=== PATIENT | male | born 1940 | race Caucasian/White ===

== ENCOUNTER 2023-12-21 14:18 | Emergency (ER) | payer OTHER, SELFPAY ==
[2023-12-21 14:19] VITALS: BP 133/61
--- NOTE | 2023-12-21 15:23 | ED.GENMED ---
History of Present Illness
General
Chief Complaint: Fall
Source: patient
Exam Limitations: none
Time Seen by Provider: 12/21/23 14:48
Nursing documentation reviewed up to this point in time: agreed with
History of Present Illness
History of Present Illness:
83 y/o male with PMH of CAD, hyperlipidemia presents to the emergency department today with concerns of left elbow pain following a fall. Patient reports that he has a small dog and was trying to avoid stepping on the dog when he misstepped and
fell down 4-5 stairs, falling on his left arm. Patient reports hitting his head, synopsizing. Patient reports neck injury. Patient denies any headache, neck pain, dizziness. Patient denies any neck pain. Patient states that he was able to get up on
his own after the fall and walk okay. He denies any other injuries. Patient denies loss of sensation, numbness or tingling in his left upper extremity. Patient does take plavix but denies taking any anticoagulant medication.
Past History
Past History
ED Past Medical History: Hypercholesterolemia
ED Past Surgical History: Other
Social History
Tobacco: Non-smoker
Alcohol: Occasional
Drug: None
Personal:
Living: with family
Review of Systems
Review of Systems
All Other Systems: ROS reviewed and negative except as documented in HPI and ROS
Phy Exam
Physical Exam
Physical Exam:
General: Patient is well appearing and in no acute distress; non-toxic
Skin: Warm and dry, no rashes no open lesions. Brisk capillary refill.
Head: Normocephalic, atraumatic
Eyes: Sclera non-icteric. EOMs intact.
Neck: Patient seen spontaneously moving cervical spine. No tenderness to palpation of the cervical spine.
Cardiac: Regular rate and rhythm, no murmur, no tenderness to palpation of the external chest wall
Pulm: Normal respiratory effort, no wheezes, rales, rhonchi
Abdomen: No abdominal tenderness to palpation.
Musculoskeletal: Hematoma noted to the left elbow overlying the olecranon. No palpable crepitus. No tenderness to palpation of the left clavicle, scapula, humerus, bones of wrist. No pain with passive range of motion of the lower extremities.
Neuro: CN II-XII intact, no focal neurologic deficits.
Psychiatric: Appropriate mood and affect.
Course
Orders/Labs/Results
Orders:
Orders
12/21/23 14:22
Elbow, 3 view, Left [CR Elbow - Left Min 3 Views ] Urgent
Comment:
Reason For Exam: swelling, pain
Vital Signs
Initial and Last Documented VS:
Initial Vital Signs
Temp Pulse Resp BP Pulse Ox
98.4 F 60 18 133/61 98
12/21/23 14:19 12/21/23 14:19 12/21/23 14:19 12/21/23 14:19 12/21/23 14:19
Last Documented Vital Signs
Temp Pulse Resp BP Pulse Ox
98.4 F 60 18 133/61 98
12/21/23 14:19 12/21/23 14:19 12/21/23 14:19 12/21/23 14:19 12/21/23 14:19
MDM/Problems Addressed
Differential Diagnosis Includes:
olecranon fracture, radius fracture, ulnar fracture, contusion, hematoma
MDM/Problems Addressed:
83 y/o male pmh of CAD on plavix presents to the emergency department today with left elbow pain following fall. He adamantly denies hitting his head. He denies neck pain. He denies any other injuries. He is able to ambulate without difficulty. On
exam he has a large hematoma overlying the left olecranon. His x-ray shows welling but is negative for fracture. Radiology report reads that there is air within the tissue, however patient has no open lesions and has hematoma on exam, no concern for
infectious etiology. Compression was applied with jefry bandages. Patient was encouraged to elevate the extremity and return should hematoma rapidly expand.
Chronic conditions affecting care:
n/a
Acute Exacerbation and/or Progression of Chronic Illness:
n/a
*Radiology
Radiology exam reviewed: preliminary read by ED provider (no acute fracture or dislocation)
*Pulse Oximetry
Patient hypoxic: no
*Critical Care Note
Total Time (30-74mins, 75-104mins- exclusive of procedures): Not Applicable
Data Reviewed
Review of Other/Old Records Reveals: Records (reviewed ER physician documentation from 03/12/10)
Source: patient and records
Prescriptions/Medications Considered But Not Given:
Considered medication for pain but patient declining medication at this time
Patient Management
Escalation/DeEscalation of care consider admission/obs:
Admit not indicated, patient stable for discharge, case reviewed with my attending
ED Attending Note
-
Portions of this chart may have been created with voice recognition software.� Occasional wrong word or��sound alike� substitutions may have occurred due to the inherent limitations of voice recognition software.
Discharge Plan
Departure
Patient Disposition: Home (Routine Discharge)
Date of Disposition: 12/21/23
Time of Disposition: 15:25
Patient with high blood pressure during this ER visit?: Yes
Condition: Good
Discharge Problem:
Traumatic hematoma of left upper arm
Instructions: BLOOD PRESSURE, Hematoma
Prescriptions:
No Action
TERAZOSIN HCL
5 mg PO DAILY
SIMVASTATIN
20 mg PO DAILY
Referrals:
Sherrill Santiago MD [Family Provider] -
Activity Restrictions/Additional Instructions:
Please keep the arm elevated at home and apply compression with Jefry wrap. You can also apply apply ice to the area.
Please follow up with your primary care provider in one week to ensure your hematoma is resolving.
Please return emergency department should you experience increasing pain in your arm, loss of sensation, pallor, numbness or tingling in your fingers, any other signs or symptoms concerning to you.
Interventions
Interventions:
*Risk Screen - Suicide Last Done: 12/21/23 14:19
*General Assessment Last Done: 12/21/23 14:19
*Neglect/Abuse Screening Last Done: 12/21/23 14:19
*Nursing Disposition Last Done: 12/21/23 16:03
ED-Musculoskeletal Assessment Last Done: 12/21/23 14:55
ED- Neurological Assessment Last Done: 12/21/23 14:55
Discharge Date and Time
Discharge Date/Time: 12/21/23 16:04
Print Language: KOREAN
== END 2023-12-21 16:04 | disposition home or self-care (01) ==
LOC: EMR 14:18
PROVIDERS: EMERGENCY PHYSICIAN Emergency Medicine; FAMILY PHYSICIAN Family Medicine
DX: S40.022A Contusion of left upper arm, initial encounter (principal); W19.XXXA Unspecified fall, initial encounter; I25.10 Atherosclerotic heart disease of native coronary artery without angina pectoris; E78.00 Pure hypercholesterolemia, unspecified; Z79.02 Long term (current) use of antithrombotics/antiplatelets
CPT/HCPCS: 99283; 73080

== ENCOUNTER → 2023-12-26 14:08 | Outpatient (REF) | payer OTHER, SELFPAY | LOC: HWRAD 14:08 | PROVIDERS: ATTENDING PHYSICIAN Orthopaedic Surgery Hand Surgery; FAMILY PHYSICIAN Family Medicine | DX: M25.512 Pain in left shoulder (principal) | CPT/HCPCS: 73200 ==

== ENCOUNTER → 2023-12-31 09:38 | Outpatient (REF) | payer OTHER, SELFPAY | LOC: RAD 09:38 | PROVIDERS: ATTENDING PHYSICIAN Orthopaedic Surgery Hand Surgery; FAMILY PHYSICIAN Family Medicine | DX: M25.522 Pain in left elbow (principal) | CPT/HCPCS: 76882 ==

== ENCOUNTER → 2024-01-03 09:47 | Outpatient (REF) | payer OTHER, SELFPAY | LOC: RCS 09:47 | PROVIDERS: ATTENDING PHYSICIAN Family Medicine | DX: I10 Essential (primary) hypertension (principal); Z01.818 Encounter for other preprocedural examination | CPT/HCPCS: 93306 ==

== ENCOUNTER → 2024-01-04 12:21 | Outpatient (REF) | payer OTHER, SELFPAY ==
[2024-01-04 13:28] LABS: % Basophils 0.2 % (0-2); % Eosinophils 0.9 % (0-6); % Immature Granulocytes 0.7 % (0-0.5); % Lymphocytes 14.3 % (20.5-51.1); % Monocytes 7.8 % (1.7-9.3); % Neutrophils 76.1 % (42.2-75.2); Absolute Eosinophils 0.1 10^3/uL (0-0.7); Absolute Immature Granulocytes 0.1 10^3/uL (0-0.05); Absolute Lymphocytes 1.2 10^3/uL (1.2-3.4); Absolute Monocytes 0.6 10^3/uL (0.1-0.6); Absolute Neutrophils 6.2 10^3/uL (1.4-6.5); Hematocrit 27.5 % (39.0-52.0); Mean Corp Hgb Conc. 32.7 g/dL (33.0-37.0); Mean Corpuscular Hgb 32.4 pg (27.0-31.0); Mean Corpuscular Volume 98.9 fL (80.0-94.0); Mean Platelet Volume 8.8 fL (7.4-10.4); Nucleated Red Blood Cells % 0 % (-); Platelet Count 331 10^3/uL (130-400); Red Blood Cell Count 2.78 10^6/uL (4.70-6.10); Red Cell Dist. Width 13.5 % (11.5-14.5); White Blood Cell Count 8.2 10^3/uL (4.8-10.8)
[2024-01-04 13:50] LABS: INR 1.06; PT 13.6 Sec (11.4-14.6)
[2024-01-04 13:59] LABS: APTT 31.9 Sec (23.4-35.0)
[2024-01-04 14:50] LABS: ALT (SGPT) 23 U/L (0-50); AST (SGOT) 30 U/L (17-59); Albumin 4.4 g/dl (3.5-5.0); Alkaline Phosphatase 87 U/L (38-126); Blood Urea Nitrogen 34 mg/dl (9-20); Calcium 9.6 mg/dl (8.4-10.2); Carbon Dioxide 24 mmol/L (22-30); Chloride 107 mmol/L (98-107); Glucose 92 mg/dl (70-99); Potassium 5.1 mmol/L (3.5-5.1); Sodium 144 mmol/L (135-145); Total Bilirubin 0.9 mg/dl (0.2-1.3); Total Protein 6.9 g/dl (6.3-8.2); eGFR > 60.00
== END ==
LOC: REG 12:21
PROVIDERS: ATTENDING PHYSICIAN Family Medicine
DX: S42.202D Unspecified fracture of upper end of left humerus, subsequent encounter for fracture with routine healing (principal); Z01.818 Encounter for other preprocedural examination; W10.8XXD Fall (on) (from) other stairs and steps, subsequent encounter
CPT/HCPCS: 36415; 80053; 85025; 85610; 85730

== ENCOUNTER → 2024-01-07 13:02 | Outpatient (REF) | payer OTHER, SELFPAY | LOC: RCS 13:02 | PROVIDERS: ATTENDING PHYSICIAN Family Medicine | DX: I10 Essential (primary) hypertension (principal); R94.31 Abnormal electrocardiogram [ECG] [EKG] | CPT/HCPCS: 93017 ==

== ENCOUNTER → 2024-01-08 07:50 | Outpatient (REF) | payer OTHER, SELFPAY ==
[2024-01-08] MEDS: LEXISCAN 0.4 MG IV (10:50)
[2024-01-08] MEDS: FLUSH (NSS) 1 FLUSH IV (10:51)
== END ==
LOC: RCS 07:50
PROVIDERS: ATTENDING PHYSICIAN Internal Medicine Cardiovascular Disease; FAMILY PHYSICIAN Family Medicine
DX: R07.9 Chest pain, unspecified (principal); R94.39 Abnormal result of other cardiovascular function study; Z01.810 Encounter for preprocedural cardiovascular examination
CPT/HCPCS: 78452; 93017; A9500; J2785

== ENCOUNTER 2024-01-09 06:36 | Day surgery (SDC) | payer OTHER, SELFPAY ==
[2024-01-07 13:00] VITALS: BMI 30.5
[2024-01-08 07:57] LABS: Glycohemoglobin (HgbA1c) 5.5 % (4.0-5.6)
[2024-01-09] VITALS (8 sets, daily range): BP systolic 128–161; BP diastolic 61–79
[2024-01-09] MEDS: BACTROBAN NASAL 1 GRAM NASAL (09:32)
[2024-01-09] MEDS: CELEBREX 200 MG PO (09:32)
[2024-01-09] MEDS: TYLENOL 1000 MG PO (09:32)
[2024-01-09] MEDS: NORMOSOL-R/PLASMALYTE-A 1000 IV (09:50)
[2024-01-09] MEDS: ANCEF 5 IV (13:44)
== END 2024-01-09 14:11 | disposition home or self-care (01) ==
LOC: SDS 06:36
PROVIDERS: ATTENDING PHYSICIAN Orthopaedic Surgery Hand Surgery; FAMILY PHYSICIAN Family Medicine
DX: S42.202A Unspecified fracture of upper end of left humerus, initial encounter for closed fracture (principal); M19.012 Primary osteoarthritis, left shoulder; X58.XXXA Exposure to other specified factors, initial encounter
CPT/HCPCS: 23472; 36415; 73020; 83036; 86850; 86900; 86901; 87070; C1713; C1776

== ENCOUNTER → 2024-02-11 13:46 | Outpatient (REF) | payer OTHER, SELFPAY ==
[2024-02-11 15:31] LABS: % Basophils 0.2 % (0-2); % Eosinophils 1.1 % (0-6); % Immature Granulocytes 0.7 % (0-0.5); % Lymphocytes 26.5 % (20.5-51.1); % Monocytes 8.8 % (1.7-9.3); % Neutrophils 62.7 % (42.2-75.2); Absolute Eosinophils 0.1 10^3/uL (0-0.7); Absolute Lymphocytes 1.6 10^3/uL (1.2-3.4); Absolute Monocytes 0.5 10^3/uL (0.1-0.6); Absolute Neutrophils 3.9 10^3/uL (1.4-6.5); Hematocrit 34.7 % (39.0-52.0); Mean Corp Hgb Conc. 31.7 g/dL (33.0-37.0); Mean Corpuscular Hgb 31.7 pg (27.0-31.0); Mean Platelet Volume 9.3 fL (7.4-10.4); Nucleated Red Blood Cells % 0 % (-); Platelet Count 218 10^3/uL (130-400); Red Blood Cell Count 3.47 10^6/uL (4.70-6.10); Red Cell Dist. Width 12.6 % (11.5-14.5); White Blood Cell Count 6.2 10^3/uL (4.8-10.8)
[2024-02-11 15:46] LABS: Blood Urea Nitrogen 22 mg/dl (9-20); Calcium 9.1 mg/dl (8.4-10.2); Carbon Dioxide 27 mmol/L (22-30); Chloride 103 mmol/L (98-107); Glucose 88 mg/dl (70-99); Potassium 4.4 mmol/L (3.5-5.1); Sodium 141 mmol/L (135-145); eGFR > 60.00
== END ==
LOC: REG 13:46
PROVIDERS: ATTENDING PHYSICIAN Orthopaedic Surgery Hand Surgery
DX: Z01.818 Encounter for other preprocedural examination (principal)
CPT/HCPCS: 36415; 80048; 85025

== ENCOUNTER 2024-02-13 06:09 | Day surgery (SDC) | payer OTHER, SELFPAY ==
[2024-02-13 07:15] VITALS: BMI 28.5
[2024-02-13 07:30] VITALS: BMI 28.5
[2024-02-13 07:35] VITALS: BP 160/68
[2024-02-13] MEDS: TYLENOL 1000 MG PO (07:46)
[2024-02-13] MEDS: CELEBREX 200 MG PO (07:47)
[2024-02-13 09:20] VITALS: BP 174/69
[2024-02-13 09:30] VITALS: BP 177/69
[2024-02-13 09:45] VITALS: BP 180/70
[2024-02-13 10:00] VITALS: BP 184/69
[2024-02-13 10:15] VITALS: BP 172/68
== END 2024-02-13 10:36 | disposition home or self-care (01) ==
LOC: SDS 06:09
PROVIDERS: ATTENDING PHYSICIAN Orthopaedic Surgery Hand Surgery
DX: T84.028A Dislocation of other internal joint prosthesis, initial encounter (principal); Y79.2 Prosthetic and other implants, materials and accessory orthopedic devices associated with adverse incidents; Z96.612 Presence of left artificial shoulder joint
CPT/HCPCS: 23655; 73020; 73030; 76000; 86850; 86900; 86901

== ENCOUNTER → 2024-04-20 08:31 | Outpatient (REF) | payer OTHER, SELFPAY | LOC: MRI 3T 08:31 | PROVIDERS: ATTENDING PHYSICIAN Family Medicine | DX: Z86.73 Personal history of transient ischemic attack (TIA), and cerebral infarction without residual deficits (principal); I65.22 Occlusion and stenosis of left carotid artery; I65.21 Occlusion and stenosis of right carotid artery | CPT/HCPCS: 70547 ==